=== PATIENT | male | born 1995 | race Two or more races ===

== ENCOUNTER 2023-05-05 18:38 | Emergency (ER) | payer MEDICAID ==
[~2023-05-05] VITALS: Ht 188 cm; Wt 112.0 kg
[2023-05-05 18:54] VITALS: BP 137/83
[2023-05-05] MEDS ORDERED: ZOFR4T PO (22:13)
[2023-05-05] MEDS ORDERED: HYDR-4902 PO (22:13)
== END 2023-05-05 22:42 | disposition home or self-care (01) ==
LOC: ER 18:38
DX: S62.326A Displaced fracture of shaft of fifth metacarpal bone, right hand, initial encounter for closed fracture (principal); W22.8XXA Striking against or struck by other objects, initial encounter; Y93.89 Activity, other specified; Y92.89 Other specified places as the place of occurrence of the external cause; Y99.8 Other external cause status
CPT/HCPCS: 29125; 73130